=== PATIENT | male | born 1930 | race Caucasian/White ===

== ENCOUNTER 2017-01-31 12:59 | Emergency (ER) | payer MEDICARE | END 2017-01-31 18:20 | disposition left against medical advice (07) | LOC: D.ER 12:59 | DX: S51.002A Unspecified open wound of left elbow, initial encounter (principal); W19.XXXA Unspecified fall, initial encounter; Y93.89 Activity, other specified; Y92.89 Other specified places as the place of occurrence of the external cause ==

== ENCOUNTER 2018-09-26 15:24 | Emergency (ER) | payer MEDICARE ==
[~2018-09-26] VITALS: Ht 182.9 cm; Wt 75.0 kg
[2018-09-26 15:30] VITALS: Ht 182.9 cm; Wt 75.0 kg
[2018-09-26] MEDS ORDERED: ZESTRIL40 MG PO (15:31)
[2018-09-26] MEDS ORDERED: BETAPACE 80 MG80 MG PO (15:31)
[2018-09-26] MEDS ORDERED: PROSCAR5 MG (15:32)
[2018-09-26] MEDS ORDERED: PROTONIX20 MG PO (15:32)
[2018-09-26] MEDS ORDERED: NAMENDA10 MG (15:32)
[2018-09-26] MEDS ORDERED: COREG CR10 MG PO (15:32)
[2018-09-26 18:06] LABS: BASOPHILS 0.1 % (0-2); EOSINOPHILS 0.7 % (0-7); HEMATOCRIT 43.6 % (42.0-54.0); HEMOGLOBIN 14.8 g/dL (13.5-17.5); IMMATURE GRANULOCYTES 0.4 % (0-5); LYMPHOCYTES 13.9 % (15-50); MCHC 33.9 g/dL (31.0-37.0); MCV 103.1 fL (80.0-100.0); MEAN PLATELET VOLUME 10.8 fL (7.4-10.4); MONOCYTES 7.3 % (2-11); NEUTROPHILS 77.6 % (40-80); PLATELET COUNT 154 10x3/uL (130-400); RBC 4.23 10x6/uL (4.20-6.10); RDW 12.5 % (11.5-14.5); WBC 8.4 10x3/uL (4.8-10.8)
[2018-09-26 18:18] LABS: INR 1.16 (0.85-1.17); PROTIME 14.5 SECONDS (11.6-15.0)
[2018-09-26 18:22] LABS: ALBUMIN 3.6 g/dL (3.4-5.0); ANION GAP 14.4 mmol/L (8-16); CALCIUM 9.5 mg/dL (8.5-10.1); CARBON DIOXIDE 24.5 mmol/L (21.0-32.0); CREATININE - SERUM 1.7 mg/dL (0.6-1.3); POTASSIUM - SERUM 3.9 mmol/L (3.5-5.1); PROTEIN - SERUM 6.9 g/dL (6.4-8.2)
[2018-09-26 19:29] VITALS: BP 137/95
== END 2018-09-26 20:01 | disposition other institution (70) ==
LOC: D.ER 15:24
PROVIDERS: Family Medicine
DX: S06.5X9A Traumatic subdural hemorrhage with loss of consciousness of unspecified duration, initial encounter (principal); W18.30XA Fall on same level, unspecified, initial encounter; Y93.89 Activity, other specified; Y92.018 Other place in single-family (private) house as the place of occurrence of the external cause; I10 Essential (primary) hypertension; Z86.73 Personal history of transient ischemic attack (TIA), and cerebral infarction without residual deficits; I48.91 Unspecified atrial fibrillation; F03.90 Unspecified dementia, unspecified severity, without behavioral disturbance, psychotic disturbance, mood disturbance, and anxiety

== ENCOUNTER 2019-01-19 20:53 | Emergency (ER) | payer MEDICARE ==
[~2019-01-19] VITALS: Ht 182.9 cm; Wt 76.4 kg
[~2019-01-19 20:53] MED LIST: BETAPACE 80 MG80 MG PO; COREG CR10 MG PO; NAMENDA10 MG; PROSCAR5 MG; PROTONIX20 MG PO; ZESTRIL40 MG PO
[2019-01-19 21:06] VITALS: Ht 182.9 cm; Wt 76.4 kg
[2019-01-19] MEDS ORDERED: LISINOPRIL20 MG PO (21:08)
[2019-01-19] MEDS ORDERED: COREG6.25 MG PO (21:08)
[2019-01-19] MEDS ORDERED: CENTRUM MEN'S1 EACH PO (21:09)
[2019-01-19 21:29] LABS: BASOPHILS 0.2 % (0-2); EOSINOPHILS 2.3 % (0-7); HEMATOCRIT 41.8 % (42.0-54.0); HEMOGLOBIN 14.1 g/dL (13.5-17.5); IMMATURE GRANULOCYTES 0.2 % (0-5); LYMPHOCYTES 24.3 % (15-50); MCH 34.1 pg (26.0-34.0); MCHC 33.7 g/dL (31.0-37.0); MCV 101.2 fL (80.0-100.0); MEAN PLATELET VOLUME 10.4 fL (7.4-10.4); MONOCYTES 12.8 % (2-11); NEUTROPHILS 60.2 % (40-80); PLATELET COUNT 143 10x3/uL (130-400); RBC 4.13 10x6/uL (4.20-6.10); RDW 12.4 % (11.5-14.5); WBC 6.1 10x3/uL (4.8-10.8)
[2019-01-19 21:36] LABS: APTT 35.3 SECONDS (22.8-39.4); INR 1.1 (0.85-1.17); PROTIME 13.7 SECONDS (11.6-15.0)
[2019-01-19 21:44] LABS: ALBUMIN 3.3 g/dL (3.4-5.0); ALKALINE PHOSPHATASE 84 U/L (46-116); ALT (SGPT) 15 U/L (10-68); BILIRUBIN - TOTAL 0.72 mg/dL (0.2-1.3); CALC OSMOLALITY 289 mosm/kg (275-300); CALCIUM 9.2 mg/dL (8.5-10.1); CARBON DIOXIDE 19.8 mmol/L (21.0-32.0); CHLORIDE - SERUM 108 mmol/L (98-107); CREATININE - SERUM 1.9 mg/dL (0.6-1.3); GLUCOSE 101 mg/dL (74-106); POTASSIUM - SERUM 4.1 mmol/L (3.5-5.1); PROTEIN - SERUM 6.5 g/dL (6.4-8.2); SODIUM 142 mmol/L (136-145); UREA NITROGEN 32 mg/dL (7-18); eGFR NON AFRICAN AMERICAN 36 mL/min (90-120)
[2019-01-19 21:56] LABS: CKMB 1.4 U/L (0.0-3.6); CREATINE KINASE 21 UL (21-232); MAGNESIUM - SERUM 1.8 mg/dL (1.8-2.4); THYROID STIMULATING HORMONE 1.37 uIU/mL (0.36-3.74)
[2019-01-19 21:57] LABS: TROPONIN-I < 0.017 ng/mL (0.000-0.060)
[2019-01-19 22:06] LABS: APPEARANCE CLEAR (CLEAR); BACTERIA FEW /hpf (NONE SEEN); BILIRUBIN NEGATIVE (NEGATIVE); COLOR YELLOW (YELLOW); EPITHELIAL CELLS 0-5 /hpf (0-5); GLUCOSE NEGATIVE (NEGATIVE); KETONE NEGATIVE (NEGATIVE); MUCUS <1+ /lpf (NONE SEEN); NITRITE NEGATIVE (NEGATIVE); PROTEIN 1+ mg/dL (NEGATIVE); UROBILINOGEN NORMAL (NORMAL)
[2019-01-19 22:54] VITALS: BP 175/98
== END 2019-01-19 23:07 | disposition other institution (70) ==
LOC: D.ER 20:53
PROVIDERS: Emergency Medicine
DX: I63.9 Cerebral infarction, unspecified (principal); R29.810 Facial weakness; G81.91 Hemiplegia, unspecified affecting right dominant side; Z92.82 Status post administration of tPA (rtPA) in a different facility within the last 24 hours prior to admission to current facility; N18.9 Chronic kidney disease, unspecified